=== PATIENT | male | born 1955 | race Caucasian/White ===

== ENCOUNTER → 2020-02-19 | Outpatient (CLI) | payer OTHER ==
[~2020-02-19] MED LIST: AMITRIPTYLINE H25 M2 PO; FISH OIL 1,0001 EAC8 PO; NORCO 10-325 T1 EACH PO; PRAVACHOL 20 MG20 M1 PO; VITAMIN C500 M2 PO; ZOLPIDEM TARTRA10 MG PO
== END ==
LOC: LAB 07:53
PROVIDERS: ATTEND Orthopaedic Surgery Sports Medicine
DX: Z01.812 Encounter for preprocedural laboratory examination (principal); Z20.828 Contact with and (suspected) exposure to other viral communicable diseases

== ENCOUNTER → 2020-02-27 | Outpatient (CLI) | payer OTHER | LOC: LAB 07:53 | PROVIDERS: ATTEND Orthopaedic Surgery Sports Medicine | DX: Z01.812 Encounter for preprocedural laboratory examination (principal); Z20.828 Contact with and (suspected) exposure to other viral communicable diseases ==

== ENCOUNTER 2020-03-03 06:18 | Observation (INO) | payer OTHER ==
[2020-02-19 13:09] LABS: HEMATOCRIT 43.1 % (42.0-52.0); HEMOGLOBIN 14.7 gm/dL (14.0-18.0); MCH 32.4 pg (26.0-34.0); MCHC 34.2 g/dL (28.0-37.0); MCV 94.7 fL (80.0-100.0); RBC 4.55 mil/uL (4.50-6.00); RDW 13.9 % (10.5-14.5); URINE BILIRUBIN NEGATIVE (Negative); URINE BLOOD NEGATIVE (Negative); URINE CLARITY CLEAR; URINE COLOR YELLOW; URINE GLUCOSE-RANDOM* NEGATIVE (Negative); URINE KETONES NEGATIVE (Negative); URINE LEUKOCYTES-REFLEX NEGATIVE (Negative); URINE NITRITE-REFLEX NEGATIVE (Negative); URINE PROTEIN (DIPSTICK) NEGATIVE (Negative); URINE SPECIFIC GRAVITY 1.015 (1.005-1.035); URINE UROBILINOGEN 0.2 E.U./dl (0.2-1.0); WBC 6.8 thou/uL (4.0-11.0)
[2020-02-19 13:21] LABS: ALBUMIN 4.4 g/dL (3.4-5.0); CALCIUM 8.8 mg/dL (8.5-10.1); CREATININE 1.3 mg/dL (0.7-1.3); POTASSIUM 4.4 mmol/L (3.5-5.1)
[2020-02-19 13:26] LABS: PROTIME 9.9 Seconds (9.3-11.4)
--- NOTE | 2020-02-19 14:20 | EKG ---
[facility] [place] [address] ELECTROCARDIOGRAM REPORT Name: ALONDRA LOZADA Room #: PRE [facility] [place]#: [id number] Admission: Attend Phys: Kenney Gonzalez MD Discharge: Date of : 57 Report #: [id number] THIS REPORT FOR: cc: Deni Dietrich MD, Steven E. MD Santiago, Patrick MD [facility] ~ THIS REPORT FOR: //name// [facility] Test Date: 2020-02-19 Test Time: 13:06:12 Pat Name: ALONDRA LOZADA Department: Room: Gender: Registered Pharmacy Technician: DASHAWN JUAREZ : 1955 Requested By: Kenney Gonzalez Order Number: [id number] MD: Crescencio Nathan Measurements Intervals [place] Rate: 86 P: 46 MD: 167 QRS: 63 QRSD: 99 T: 32 QT: 349 QTc: 418 Interpretive Statements Sinus rhythm Probable left atrial enlargement No previous ECG available for comparison Electronically Signed On 02-19-2020 14:20:16 BUFFING AND POLISHING WHEEL REPAIRER by Crescencio Nathan [email or web address] <ELECTRONICALLY SIGNED> By: Crescencio Nathan MD, [facility] 02/19/20 1420 1306 130 Crescencio Nathan MD, FACC /EPI
[~2020-03-03] VITALS: Ht 180.3 cm; Wt 86.6 kg
[2020-03-03] VITALS (7 sets, daily range): BP systolic 107–134; BP diastolic 61–91
--- NOTE | ~2020-03-03 | O ---
[address] [address] OPERATIVE REPORT Name: ALONDRA LOZADA Room #: 448-P [facility]#: [id number] Admission: 03/03/20 Attend Phys: Kenney Gonzalez MD Discharge: Date of : 57 Report #: [id number] THIS REPORT FOR: cc: Deni Dietrich MD, Steven E. MD McCabe,Kenney Lazcano MD ~ CC: Kenney Dietrich DATE OF SERVICE: 03/03/2020 SERVICE: Orthopedics. FACILITY: [facility]. SURGEON: Kenney Gonzalez MD JUNIOR ACCOUNTANT BOOKKEEPER: Dawna Richardson NP. INDICATION FOR JUNIOR ACCOUNTANT BOOKKEEPER: Assistance with the exposure and closure as well as assistance with the reconstruction and arthroplasty. PREOPERATIVE DIAGNOSES: 1. Left knee pain. 2. Left knee medial compartment osteoarthritis. POSTOPERATIVE DIAGNOSES: 1. Left knee pain. 2. Left knee medial compartment osteoarthritis. PROCEDURES: 1. Left unicompartmental knee arthroplasty. 2. Computer navigated robotic-assisted arthroplasty. COMPLICATIONS: None. DRAINS: None. SPECIMENS: None. ANESTHESIA: General with regional. FINDINGS: 1. Obrien and Nephew size 6 Journey II Oxinium medial femoral component, size 5 María tibial component and size 9 poly insert. 2. Intact cruciates, patellofemoral and lateral compartment. [address] [address] OPERATIVE REPORT Name: ALONDRA LOZADA Room #: 448-P ADM [facility]#: [id number] Admission: 03/03/20 Attend Phys: Kenney Gonzalez MD Discharge: Date of : 57 Report #: [id number] HISTORY: The patient is a gentleman with history of persistent progressive medial-sided left knee pain that had failed conservative measures including rest, activity modifications, physical therapy, oral medicines, injections and modalities. He had images, which were consistent with [id number] osteoarthritis of the medial compartment of the knee and he wished to move forward with definitive surgical treatment after failing conservative measures. He was experiencing lifestyle limiting daily pain. Risks, benefits, alternatives, and indication of surgery discussed with him in detail. Risks include but not limited to pain, bleeding, infection, injury to nerves or blood vessels, persistent pain despite surgical intervention, failure of any repairs, reconstructions and including the arthroplasty, need for further surgery including revision to total knee arthroplasty as well as complications related to anesthesia up to and including . Despite these risks, he wished to proceed. PROCEDURE IN DETAIL: After left lower extremity was correctly identified in the preoperative holding area as the operative extremity, the patient underwent regional nerve block. He was then taken to the operating room where general anesthesia was induced without complication. He was padded appropriately. Prophylactic antibiotics were administered at appropriate time. Left leg was prepped and draped in standard sterile fashion. Timeout procedure performed. Standard anterior approach was made to the knee with a medial parapatellar arthrotomy. The patellofemoral compartment had some chondromalacia of the central portion of the trochlea measuring approximately 1 cm x 1 cm. This is healed in with fibrocartilage and was stable and was not significantly arthritic joint. The lateral compartment was normal. The medial compartment was noted to have severe arthritis with [id number]-[id number] changes and sclerosis and osteophytes. The osteophytes were resected with a limited medial soft tissue release was performed and then the Obrien and Nephew Navio. Checkpoints and half pins were placed for the robotic assistance. The ____ was used to obtain alignment, range of motion and osseous topography. After this was completed, we assessed the templating for balancing final implants and the system recommended a size 6 femoral component was used ultimately, but we confirmed on visual inspection. The bony dissection was made on the femur and the tibia, placed the trials into position and then took the knee through range of motion with a stress range of motion as well trialing various implants and poly insert. I selected a 9 mm poly and then was happy with the appearance of the soft tissue balancing at this point. The trials were removed. The wound was copiously irrigated. The final preparations were made on the tibia and the femur and then the final implants that were selected were cemented into place. A 10 mm trial was placed and then the knee was forced into extension to enhance the compression of the components in their respective positions. The periarticular injection cocktail was injected into the soft tissues around the knee, that the posterior portion of the cocktail injection was performed prior to placement of the final implants [address] [address] OPERATIVE REPORT Name: ALONDRA LOZADA Room #: 448-P [facility]#: [id number] Admission: 03/03/20 Attend Phys: Kenney Gonzalez MD Discharge: Date of : 57 Report #: [id number] and excess cement was removed. While the cement was curing, the tourniquet was let down and hemostasis was achieved. The wound was then copiously irrigated again and the arthrotomy was closed with over a gram of vancomycin powder with 0 Vicryl suture in oktbwe-um-zhsgo fashion. Skin was closed with 2-0 Vicryl and then a running subcuticular 3-0 Monocryl and Dermabond was applied. Sterile dressing was applied, then a compression stocking. The patient received a PolarCare device. He was then awakened from anesthesia and taken to recovery room in stable condition. No complications. All counts were reported correct. By: [id number] Kenney Gonzalez MD /nt
--- NOTE | 2020-03-03 14:50 | NUR ---
ASSESSMENT: CM REVIEWED CHART AND SPOKE WITH PT AT THE BEDSIDE ALONG WITH HIS . PT REPOTS LIVING IN A HOUSE WITH . PT REPORTS HAVING A COUPLE STEPS TO ENTER THE HOME. PT REPORTS BEING FULLY INDEPENDENT WITH ADLS AND AMBULATION. PT DENIES HAVING ANY DME. CM SPOKE WTIH PT ABOUT POSSIBLE NEED FOR A WALKER. HE HAS NO PREFERENCE OF A DME COMPANY. CM REACHED OUT TO [employer] AND THEY ARE NOT IN NETWORK WITH HIS INSURANCE. [employer] IS IN NETWORK BUT REPORTS HE WILL NEED PRIOR AUTH AND THAT COULD TAKE UP TO A WEEK. PT REPORTS THAT HIS HAS A WALKER IN THE BASEMENT HE CAN USE AND THEY ALSO HAVE A FRIEND THAT HAS A WALKER THEY CAN HAVE SO STATES HE WILL NOT NEED ONE. PT IS HAVING TROUBLE LIFTING HIS EXTREMITY AT THIS TIME AND CM SPOKE WITH PHYSICAL THERAPY AND PT WILL REMAIN INPT OVERNIGHT AND LIKELY DISCHARGE HOME TOMORROW.
--- NOTE | 2020-03-03 19:33 | NUR ---
PT ADMITTED TO [facility] AT 1140. A&Ox4. IV PATENT WITH NO REDNESS OR EDEMA, SALINE LOCKED. IV ANTIBIOTICS GIVEN. [facility]SCD'S IN PLACE. POLARPACK IN PLACE. GITA DRESSING DRY AND INTACT. PT ON BEDREST TILL TOMORROW PER PT, DU TO BUCKLING WHEN ATTEMPTING TO GET UP WITH PT. FALL PROTOCOL IN PLACE. NO COMPLAINTS OF NAUSEA. TOLERATING DIET WELL. ADMISSION COMPLEETE. WEENED OFF OF O2. VITALS STABLE. PT HAS A HISTORY OF PTSD. CALL LIGHT IN REACH. REPORT GIVEN TO DASHAWN JACKSON
--- NOTE | 2020-03-04 01:58 | NUR ---
PT RESTING WELL. DENIES PAIN. IV ABTS X 2 COMPLETED. PT DRINKING WELL AND VOIDING PER URINAL. GITA DRSG TO L KNEE, POLAR GLORIA IN PLACE.AFEBRILE. ON ROOM AIR. CALL LIGHT WITHIN REACH.
[2020-03-04 04:57] VITALS: BP 131/88
[2020-03-04 07:30] VITALS: BP 112/77
[2020-03-04 11:06] VITALS: BP 112/77
--- NOTE | 2020-03-04 14:14 | NUR ---
1200 PATIENT GIVEN D/C INSTRUCTIONS. AT BEDSIDE. PATIENT D/C'D TO E.D. VIA W/C WITH ALL OF HIS BELONGINGS. PATIENT IS SBA FROM W/C TO CAR. PAIN MED SCRIPTS WERE FILLED BY THE ON .
== END 2020-03-04 12:34 | disposition home health service (06) ==
LOC: OR 06:18 → 4S 10:16 → OR 11:17 → 4S 03-04 12:34
PROVIDERS: ADMIT Orthopaedic Surgery Sports Medicine; ATTEND Orthopaedic Surgery Sports Medicine
DX: M17.12 Unilateral primary osteoarthritis, left knee (principal); Z79.899 Other long term (current) drug therapy
CPT/HCPCS: 27446; S2900; 50010; 50101; 50415; 50954; 51130; 51225; 51320; 53078; 53370; 54118; 56527; 56528; 57095; 57103; 57110; 57180; 62110; 62900; 64043; 65060; 70005